=== PATIENT | female | born 1975 | race Caucasian/White ===

== ENCOUNTER 2017-10-18 14:22 | Emergency (ER) | payer MEDICARE, MEDICAID ==
[~2017-10-18] VITALS: Ht 170.2 cm; Wt 80.3 kg
[~2017-10-18 14:22] MED LIST: ALDACTONE50 MG PO; ATIVAN1 MG PO; CIPRO500 MG PO; CIPROFLOXIN HC2.5 M1 OTIC; GEODON 80 MG CA80 MG PO; GEODON20 MG PO; KLONOPIN1 MG PO; LAMICTAL100 MG PO; LINZESS72 MCG PO; OXYCODONE HCL 55 MG PO; OXYCONTIN10 M1 PO; PREVACID15 MG PO; PRISTIQ50 MG PO; STRATTERA25 MG PO; TRAZODONE HCL100 MG PO; WELLBUTRIN 100100 MG PO; [UNRECOGNIZED DRUG - OTHER]
[2017-10-18] MEDS ORDERED: CIPROFLOXIN HC2.5 M1 OTIC (14:43)
[2017-10-18 14:53] VITALS: BP 150/104
== END 2017-10-18 14:54 | disposition home or self-care (01) ==
LOC: M.ERS 14:22
DX: H60.92 Unspecified otitis externa, left ear (principal); F31.9 Bipolar disorder, unspecified; F41.9 Anxiety disorder, unspecified

== ENCOUNTER 2017-10-20 11:18 | Emergency (ER) | payer MEDICARE, MEDICAID ==
[~2017-10-20] VITALS: Ht 167.6 cm; Wt 80.3 kg
[2017-10-20 12:23] VITALS: BP 137/75
== END 2017-10-20 12:24 | disposition home or self-care (01) ==
LOC: M.ERS 11:18
DX: H92.03 Otalgia, bilateral (principal); F31.9 Bipolar disorder, unspecified; F41.9 Anxiety disorder, unspecified; Z90.49 Acquired absence of other specified parts of digestive tract; Z98.890 Other specified postprocedural states

== ENCOUNTER 2017-12-21 15:56 | Emergency (ER) | payer MEDICARE, MEDICAID ==
[~2017-12-21] VITALS: Ht 167.6 cm; Wt 77.1 kg
[2017-12-21 16:19] LABS: ABSOLUTE LYMPHOCYTES 1.7 thou/uL (0.8-5.3); ABSOLUTE MONOCYTES 0.4 thou/uL (0.0-1.2); ABSOLUTE NEUTROPHILS 5.4 thou/uL (1.6-8.1); BASOPHILS 0.5 %; EOSINOPHILS 0.2 %; HEMATOCRIT 41.4 % (37.0-47.0); HEMOGLOBIN 14.3 gm/dL (12.0-15.0); LYMPHOCYTES 22.7 %; MCH 33.4 pg (26.0-34.0); MCHC 34.4 g/dL (28.0-37.0); MCV 97.2 fL (80.0-100.0); MONOCYTES 5.5 %; MPV 8.1 fl. (7.2-11.1); NUCLEATED RBCS 0 /100WBC; PLATELET COUNT* 223 thou/uL (150-400); POLYS 71.1 %; RBC 4.26 mil/uL (4.20-5.00); WBC 7.6 thou/uL (4.0-11.0)
[2017-12-21 16:36] LABS: CALCIUM 9.2 mg/dL (8.5-10.1); CREATININE 0.7 mg/dL (0.6-1.3); POTASSIUM 3.8 mmol/L (3.5-5.1)
[2017-12-21 16:41] LABS: TOTAL BILIRUBIN 0.2 mg/dL (<0.1-1.0); TOTAL PROTEIN 7.7 g/dL (6.4-8.2)
[2017-12-21 16:58] LABS: URINE BILIRUBIN NEGATIVE (Negative); URINE BLOOD TRACE (Negative); URINE CLARITY CLEAR; URINE COLOR YELLOW; URINE GLUCOSE-RANDOM NEGATIVE (Negative); URINE KETONES NEGATIVE (Negative); URINE LEUKOCYTES-REFLEX NEGATIVE (Negative); URINE NITRITE-REFLEX NEGATIVE (Negative); URINE PROTEIN NEGATIVE (Negative); URINE SPECIFIC GRAVITY <= 1.005 (1.005-1.030); URINE UROBILINOGEN 0.2 E.U./dl (0.2-1.0)
[2017-12-21] MEDS ORDERED: RELISTOR12 MG/0.2 SUBQ (17:39)
[2017-12-21 18:26] VITALS: BP 126/88
== END 2017-12-21 18:27 | disposition home or self-care (01) ==
LOC: M.ERS 15:56
PROVIDERS: Nurse Practitioner Psychiatric/Mental Health
DX: K59.00 Constipation, unspecified (principal); F32.9 Major depressive disorder, single episode, unspecified; F41.9 Anxiety disorder, unspecified; Z90.49 Acquired absence of other specified parts of digestive tract

== ENCOUNTER 2017-12-23 15:33 | Emergency (ER) | payer MEDICARE, MEDICAID ==
[~2017-12-23] VITALS: Ht 167.6 cm; Wt 77.1 kg
[~2017-12-23 15:33] MED LIST changes: +RELISTOR12 MG/0.2 SUBQ
[2017-12-23 16:12] LABS: URINE BILIRUBIN NEGATIVE (Negative); URINE BLOOD NEGATIVE (Negative); URINE CLARITY CLEAR; URINE COLOR YELLOW; URINE GLUCOSE-RANDOM NEGATIVE (Negative); URINE KETONES NEGATIVE (Negative); URINE LEUKOCYTES-REFLEX NEGATIVE (Negative); URINE NITRITE-REFLEX NEGATIVE (Negative); URINE PROTEIN NEGATIVE (Negative); URINE UROBILINOGEN 0.2 E.U./dl (0.2-1.0)
[2017-12-23 16:13] LABS: ABSOLUTE LYMPHOCYTES 1.9 thou/uL (0.8-5.3); ABSOLUTE MONOCYTES 0.5 thou/uL (0.0-1.2); ABSOLUTE NEUTROPHILS 5.3 thou/uL (1.6-8.1); BASOPHILS 0.4 %; EOSINOPHILS 0.4 %; HEMATOCRIT 41.4 % (37.0-47.0); HEMOGLOBIN 14.1 gm/dL (12.0-15.0); LYMPHOCYTES 24.8 %; MCH 33.3 pg (26.0-34.0); MPV 8.1 fl. (7.2-11.1); NUCLEATED RBCS 0 /100WBC; PLATELET COUNT* 223 thou/uL (150-400); POLYS 68.4 %; RBC 4.23 mil/uL (4.20-5.00); RDW-CV 12.8 % (10.5-14.5); WBC 7.7 thou/uL (4.0-11.0)
[2017-12-23 16:25] LABS: CALCIUM 9.3 mg/dL (8.5-10.1); CREATININE 0.8 mg/dL (0.6-1.3); POTASSIUM 4.1 mmol/L (3.5-5.1)
[2017-12-23 16:30] LABS: ALBUMIN 3.9 g/dL (3.4-5.0); TOTAL BILIRUBIN 0.2 mg/dL (<0.1-1.0); TOTAL PROTEIN 7.6 g/dL (6.4-8.2)
[2017-12-23 19:37] VITALS: BP 122/81
== END 2017-12-23 19:37 | disposition home or self-care (01) ==
LOC: M.ERS 15:33
PROVIDERS: Personal Emergency Response Attendant
DX: G89.29 Other chronic pain (principal); R10.13 Epigastric pain; F31.9 Bipolar disorder, unspecified; F41.9 Anxiety disorder, unspecified; Z90.49 Acquired absence of other specified parts of digestive tract; Z91.041 Radiographic dye allergy status

== ENCOUNTER → 2018-02-24 | Outpatient (CLI) | payer MEDICARE, MEDICAID ==
[~2018-02-24] MED LIST changes: +AMITRIPTYLINE H10 M3 PO; +TRULANCE3 MG PO
== END ==
LOC: M.ULTRA 15:56
DX: R10.2 Pelvic and perineal pain (principal); R35.0 Frequency of micturition; M47.816 Spondylosis without myelopathy or radiculopathy, lumbar region

== ENCOUNTER 2018-03-09 21:38 | Inpatient (IN) | payer MEDICARE, MEDICAID ==
[~2018-03-09] VITALS: Ht 167.6 cm; Wt 84.4 kg
[~2018-03-09 21:38] MED LIST changes: -AMITRIPTYLINE H10 M3 PO; -TRULANCE3 MG PO
[2018-03-09 21:46] VITALS: BP 148/120
[2018-03-09 22:18] LABS: ABSOLUTE LYMPHOCYTES 1.4 thou/uL (0.8-5.3); ABSOLUTE MONOCYTES 0.8 thou/uL (0.0-1.2); ABSOLUTE NEUTROPHILS 9.2 thou/uL (1.6-8.1); BASOPHILS 0.3 %; EOSINOPHILS 0.2 %; HEMATOCRIT 41.1 % (37.0-47.0); HEMOGLOBIN 14.1 gm/dL (12.0-15.0); LYMPHOCYTES 12.6 %; MCH 33.5 pg (26.0-34.0); MCHC 34.2 g/dL (28.0-37.0); MCV 97.7 fL (80.0-100.0); MONOCYTES 6.6 %; MPV 7.7 fl. (7.2-11.1); NUCLEATED RBCS 0 /100WBC; PLATELET COUNT* 257 thou/uL (150-400); POLYS 80.3 %; RBC 4.21 mil/uL (4.20-5.00); RDW-CV 12.8 % (10.5-14.5); WBC 11.5 thou/uL (4.0-11.0)
[2018-03-09 22:27] LABS: CALCIUM 9.4 mg/dL (8.5-10.1); CREATININE 0.7 mg/dL (0.6-1.3); POTASSIUM 3.8 mmol/L (3.5-5.1)
[2018-03-09 22:31] LABS: ALBUMIN 3.8 g/dL (3.4-5.0); TOTAL BILIRUBIN 0.4 mg/dL (<0.1-1.0); TOTAL PROTEIN 7.4 g/dL (6.4-8.2)
[2018-03-10 00:05] VITALS: BP 122/78
[2018-03-10 00:13] LABS: URINE BILIRUBIN NEGATIVE (Negative); URINE BLOOD NEGATIVE (Negative); URINE CLARITY CLEAR; URINE COLOR STRAW; URINE GLUCOSE-RANDOM NEGATIVE (Negative); URINE KETONES 1+ (Negative); URINE LEUKOCYTES-REFLEX NEGATIVE (Negative); URINE NITRITE-REFLEX NEGATIVE (Negative); URINE PROTEIN NEGATIVE (Negative); URINE UROBILINOGEN 0.2 E.U./dl (0.2-1.0)
[2018-03-10 00:35] VITALS: BP 126/89
--- NOTE | 2018-03-10 02:20 | NUR ---
FAXED RECORDS FROM [facility] TAKEN TO FLOOR ET GIVEN TO TOBY AGUIRRE, RN
[2018-03-10 04:47] LABS: HEMATOCRIT 36.4 % (37.0-47.0); HEMOGLOBIN 12.5 gm/dL (12.0-15.0); MCH 33.8 pg (26.0-34.0); MCHC 34.3 g/dL (28.0-37.0); MCV 98.5 fL (80.0-100.0); MPV 8.1 fl. (7.2-11.1); RBC 3.7 mil/uL (4.20-5.00); RDW-CV 12.5 % (10.5-14.5); WBC 8.5 thou/uL (4.0-11.0)
--- NOTE | 2018-03-10 05:23 | NUR ---
ASSESSMENT COMPLETE. PT ADMITTED WITH INTRACTABLE ABD PAIN AND VOMITING AND HYPONATREMIA. PT IS ALERT AND ORIENTED X4. PT HAS DEVELOPMENTAL DELAY AND LEARNING DISABILITIES. PT IS FROM HOME ALONE, PARENTS ARE SUPPORT SYSTEM. PT ANXIOUS AND CRYING OUT FOR MOM. IV PAIN MEDICATION GIVEN WITH SOME RELIEF REPORTED. PT ABLE TO SLEEP SOME OF THE NIGHT. PT REPORTS NAUSEA, ONE EPISODE OF VOMITING NOTED SINCE ADMISSION TO FLOOR. PT IS ON ROOM AIR WITH [place] SATS. PT HAS IV FLUIDS INFUSING. PT IS UP STANDBY ASSIST. CALL LIGHT WITHIN REACH, BED ALARM. WILL CONTINUE PLAN OF CARE
[2018-03-10 05:31] LABS: CREATININE 0.6 mg/dL (0.6-1.3); POTASSIUM 4.2 mmol/L (3.5-5.1); TOTAL BILIRUBIN 0.3 mg/dL (<0.1-1.0); TOTAL PROTEIN 5.7 g/dL (6.4-8.2)
[2018-03-10 07:55] VITALS: BP 89/55
[2018-03-10 08:56] LABS: AMP/METHAMP Negative (Negative); BARBITURATES Negative (Negative); BENZODIAZEPINES Negative (Negative); COCAINE Negative (Negative); METHADONE Negative (Negative); OPIATES POSITIVE (Negative); PCP Negative (Negative); THC Negative (Negative)
--- NOTE | 2018-03-10 12:10 | NUR ---
INITIAL ASSESSMENT: Pt evaluated for d/c planning needs. Pt is mentally challenged and her mother is her guardian. Reviewed chart and spoke with nurse, pt and pt's mother at bedside. 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 Pt states that she drives herself to work. Pt uses no DME and has not had home health in the past. Pt plans on returning home on d/c from hospital. Will remain available to assist as needed.
[2018-03-10 16:42] VITALS: BP 137/74
--- NOTE | 2018-03-10 17:40 | NUR ---
PATIENT A&OX4, COGNITIVE DELAYS. ROOM AIR, IV RIGHT WRIST, FLUIDS INFUSSING. UP STAND BY, STEADY GAIT. PATIENT WAS TO BE DISCHARGED THIS EVENING AFTER A BM. AFTER BM, PATIENT STATES FEELING NAUSOUS AND LIKE SHE DID WHEN SHE CAME IN. SPOKE WITH PHYSICIAN, OKAY TO STAY. AFTER MYRLAX, MAG CITRATE, AND SUPPOSITORY PATIENT HAD MEDIUM BOWEL MOVEMENT. MOTHER, LEGAL GARDIAN, NOTIFIED OF PLANS. NO OTHER CONCERNS AT THIS TIME. APPROPRIATE AND COOPORATIVE WITH CARE.
[2018-03-10 20:30] VITALS: BP 122/65
[2018-03-11 03:56] LABS: ABSOLUTE EOSINOPHILS 0.1 thou/uL (0.0-0.7); ABSOLUTE LYMPHOCYTES 1.6 thou/uL (0.8-5.3); ABSOLUTE MONOCYTES 0.4 thou/uL (0.0-1.2); ABSOLUTE NEUTROPHILS 3.2 thou/uL (1.6-8.1); BASOPHILS 0.4 %; HEMATOCRIT 39.4 % (37.0-47.0); HEMOGLOBIN 13.2 gm/dL (12.0-15.0); LYMPHOCYTES 30.1 %; MCH 33.6 pg (26.0-34.0); MCHC 33.6 g/dL (28.0-37.0); MCV 99.8 fL (80.0-100.0); MONOCYTES 7.9 %; NUCLEATED RBCS 0 /100WBC; PLATELET COUNT* 210 thou/uL (150-400); POLYS 60.6 %; RBC 3.94 mil/uL (4.20-5.00); RDW-CV 12.8 % (10.5-14.5); WBC 5.2 thou/uL (4.0-11.0)
[2018-03-11 04:31] LABS: ALBUMIN 3.1 g/dL (3.4-5.0); CALCIUM 8.3 mg/dL (8.5-10.1); CREATININE 0.7 mg/dL (0.6-1.3); POTASSIUM 4.6 mmol/L (3.5-5.1); TOTAL BILIRUBIN 0.2 mg/dL (<0.1-1.0); TOTAL PROTEIN 5.9 g/dL (6.4-8.2)
[2018-03-11 07:45] VITALS: BP 116/79
[2018-03-11 09:41] VITALS: BP 122/65
--- NOTE | 2018-03-11 10:35 | NUR ---
PATIENT AND MOM GIVEN DISCHARGE INSTRUCTIONS AT THIS TIME. PATIENT'S MOM VERBALIZED UNDERSTANDING IN REGARDS TO FOLLOW UP APPOINTMENTS, MEDICATIONS, AND S/S TO CALL PHYSICIAN. PATIENT'S IV DISCONTINUED. PATIENT DISCHARGED TO HOME WITH ALL BELONGINGS. PATIENT ESCORTED OFF NURSING UNIT VIA WHEELCHAIR WITH NURSING STAFF.
== END 2018-03-11 10:38 | disposition home or self-care (01) | DRG 392 ==
LOC: M.ERS 21:38 → M.3W 23:21 → M.TBA-ER 23:21 → M.3W 03-10 00:11
PROVIDERS: Emergency Medicine; Internal Medicine; ADMIT Internal Medicine
DX: K58.1 Irritable bowel syndrome with constipation (principal); E87.1 Hypo-osmolality and hyponatremia; E86.0 Dehydration; F31.9 Bipolar disorder, unspecified; F41.9 Anxiety disorder, unspecified; K59.00 Constipation, unspecified; G89.29 Other chronic pain; Z90.49 Acquired absence of other specified parts of digestive tract; Z91.041 Radiographic dye allergy status; Z79.899 Other long term (current) drug therapy

== ENCOUNTER → 2018-05-10 | Outpatient (CLI) | payer MEDICARE, MEDICAID | LOC: M.ULTRA 14:00 | DX: F31.9 Bipolar disorder, unspecified (principal); R10.2 Pelvic and perineal pain; R10.9 Unspecified abdominal pain; Z98.891 History of uterine scar from previous surgery ==

== ENCOUNTER → 2018-05-31 | Outpatient (CLI) | payer MEDICARE, OTHER, MEDICAID | LOC: M.RAD 09:53 | DX: R13.12 Dysphagia, oropharyngeal phase (principal); K14.6 Glossodynia; R05 Cough; Z68.28 Body mass index [BMI] 28.0-28.9, adult ==

== ENCOUNTER → 2018-06-18 | Outpatient (CLI) | payer MEDICARE, OTHER, MEDICAID ==
[~2018-06-18] MED LIST changes: +AMITRIPTYLINE H10 M3 PO; +TRULANCE3 MG PO
== END ==
LOC: M.RAD 09:51
DX: K21.0 Gastro-esophageal reflux disease with esophagitis (principal); R05 Cough

== ENCOUNTER → 2018-06-21 | Outpatient (CLI) | payer MEDICARE, MEDICAID | LOC: M.RAD 13:51 | DX: M47.897 Other spondylosis, lumbosacral region (principal); M54.42 Lumbago with sciatica, left side; M54.41 Lumbago with sciatica, right side; G89.29 Other chronic pain ==

== ENCOUNTER → 2018-06-23 | Outpatient (CLI) | payer MEDICARE, OTHER, MEDICAID | LOC: M.NUC 06-15 13:26 | DX: K31.84 Gastroparesis (principal); K21.0 Gastro-esophageal reflux disease with esophagitis ==

== ENCOUNTER 2018-06-25 14:15 | Emergency (ER) | payer MEDICARE, MEDICAID ==
[~2018-06-25] VITALS: Ht 167.6 cm; Wt 83.9 kg
[~2018-06-25 14:15] MED LIST changes: -AMITRIPTYLINE H10 M3 PO; -TRULANCE3 MG PO
[2018-06-25] MEDS ORDERED: TRAZODONE HCL100 MG PO (14:19)
[2018-06-25] MEDS ORDERED: TRULANCE3 MG PO (14:19)
[2018-06-25] MEDS ORDERED: AMITRIPTYLINE H10 M3 PO (14:20)
[2018-06-25 15:06] LABS: ABSOLUTE LYMPHOCYTES 1.4 thou/uL (0.8-5.3); ABSOLUTE MONOCYTES 0.3 thou/uL (0.0-1.2); ABSOLUTE NEUTROPHILS 3.5 thou/uL (1.6-8.1); BASOPHILS 0.4 %; EOSINOPHILS 0.8 %; HEMATOCRIT 40.6 % (37.0-47.0); HEMOGLOBIN 13.8 gm/dL (12.0-15.0); LYMPHOCYTES 26.1 %; MCH 32.8 pg (26.0-34.0); MCV 96.7 fL (80.0-100.0); MONOCYTES 5.7 %; MPV 7.9 fl. (7.2-11.1); NUCLEATED RBCS 0 /100WBC; PLATELET COUNT* 244 thou/uL (150-400); RDW-CV 12.1 % (10.5-14.5); WBC 5.2 thou/uL (4.0-11.0)
[2018-06-25 15:14] LABS: CREATININE 0.7 mg/dL (0.6-1.3); POTASSIUM 3.7 mmol/L (3.5-5.1)
[2018-06-25 15:19] LABS: ALBUMIN 3.5 g/dL (3.4-5.0); TOTAL BILIRUBIN 0.2 mg/dL (<0.1-1.0); TOTAL PROTEIN 7.1 g/dL (6.4-8.2)
[2018-06-25 16:14] LABS: URINE BILIRUBIN NEGATIVE (Negative); URINE BLOOD NEGATIVE (Negative); URINE CLARITY CLEAR; URINE COLOR YELLOW; URINE GLUCOSE-RANDOM NEGATIVE (Negative); URINE KETONES NEGATIVE (Negative); URINE LEUKOCYTES NEGATIVE (Negative); URINE NITRITE NEGATIVE (Negative); URINE PROTEIN NEGATIVE (Negative); URINE SPECIFIC GRAVITY <= 1.005 (1.005-1.030); URINE UROBILINOGEN 0.2 E.U./dl (0.2-1.0)
[2018-06-25 16:39] LABS: INFLUENZA A ANTIGEN None Detected (None Detect); INFLUENZA B ANTIGEN None Detected (None Detect)
[2018-06-25 17:08] VITALS: BP 156/104
== END 2018-06-25 17:09 | disposition home or self-care (01) ==
LOC: M.ERS 14:15
PROVIDERS: Nurse Practitioner Family
DX: R51 Headache (principal); K31.84 Gastroparesis; T43.015A Adverse effect of tricyclic antidepressants, initial encounter; R41.82 Altered mental status, unspecified; F31.9 Bipolar disorder, unspecified; F41.9 Anxiety disorder, unspecified; Z90.49 Acquired absence of other specified parts of digestive tract; Z91.041 Radiographic dye allergy status; Y92.89 Other specified places as the place of occurrence of the external cause

== ENCOUNTER → 2018-06-28 | Outpatient (CLI) | payer MEDICARE, MEDICAID ==
[~2018-06-28] MED LIST changes: +AMITRIPTYLINE H10 M3 PO; +TRULANCE3 MG PO
== END ==
LOC: M.MRI 06-25 08:30
DX: M47.897 Other spondylosis, lumbosacral region (principal); M54.42 Lumbago with sciatica, left side; M54.41 Lumbago with sciatica, right side; G89.29 Other chronic pain; R35.0 Frequency of micturition

== ENCOUNTER 2018-09-07 10:40 | Emergency (ER) | payer MEDICARE, MEDICAID ==
[~2018-09-07] VITALS: Ht 167.6 cm; Wt 90.7 kg
[2018-09-07 11:21] LABS: ABSOLUTE MONOCYTES 0.6 thou/uL (0.0-1.2); ABSOLUTE NEUTROPHILS 7.9 thou/uL (1.6-8.1); BASOPHILS 0.2 %; EOSINOPHILS 0.1 %; HEMOGLOBIN 14.9 gm/dL (12.0-15.0); LYMPHOCYTES 18.8 %; MCH 33.1 pg (26.0-34.0); MCHC 34.6 g/dL (28.0-37.0); MCV 95.8 fL (80.0-100.0); MONOCYTES 5.4 %; MPV 7.2 fl. (7.2-11.1); NUCLEATED RBCS 0 /100WBC; PLATELET COUNT* 311 thou/uL (150-400); POLYS 75.5 %; RBC 4.49 mil/uL (4.20-5.00); RDW-CV 12.9 % (10.5-14.5); WBC 10.5 thou/uL (4.0-11.0)
[2018-09-07 11:27] LABS: URINE BILIRUBIN NEGATIVE (Negative); URINE BLOOD TRACE (Negative); URINE CLARITY CLEAR; URINE COLOR YELLOW; URINE GLUCOSE-RANDOM NEGATIVE (Negative); URINE KETONES NEGATIVE (Negative); URINE LEUKOCYTES-REFLEX NEGATIVE (Negative); URINE NITRITE-REFLEX NEGATIVE (Negative); URINE PROTEIN NEGATIVE (Negative); URINE SPECIFIC GRAVITY <= 1.005 (1.005-1.030); URINE UROBILINOGEN 0.2 E.U./dl (0.2-1.0)
[2018-09-07 11:29] LABS: CALCIUM 9.3 mg/dL (8.5-10.1); CREATININE 0.7 mg/dL (0.6-1.3); POTASSIUM 3.5 mmol/L (3.5-5.1)
[2018-09-07 11:34] LABS: AMP/METHAMP Negative (Negative); BARBITURATES Negative (Negative); BENZODIAZEPINES Negative (Negative); COCAINE Negative (Negative); METHADONE Negative (Negative); OPIATES Negative (Negative); PCP Negative (Negative); THC Negative (Negative)
[2018-09-07 11:34] LABS: ALBUMIN 3.3 g/dL (3.4-5.0); TOTAL BILIRUBIN 0.2 mg/dL (<0.1-1.0); TOTAL PROTEIN 7.5 g/dL (6.4-8.2)
[2018-09-07 11:37] LABS: ALCOHOL < 10 mg/dL (<10); SALICYLATE < 2.8 mg/dL (2.8-20.0)
[2018-09-07 11:39] LABS: ACETAMINOPHEN < 2 ug/mL (10-30)
[2018-09-07 12:16] VITALS: BP 157/109
== END 2018-09-07 12:16 | disposition home or self-care (01) ==
LOC: M.ERS 10:40
PROVIDERS: Emergency Medicine
DX: F32.9 Major depressive disorder, single episode, unspecified (principal); F41.9 Anxiety disorder, unspecified; Z90.49 Acquired absence of other specified parts of digestive tract; Z91.041 Radiographic dye allergy status; Z79.899 Other long term (current) drug therapy

== ENCOUNTER 2018-10-09 14:05 | Emergency (ER) | payer MEDICARE, MEDICAID ==
[~2018-10-09] VITALS: Ht 167.6 cm; Wt 90.7 kg
[2018-10-09] MEDS ORDERED: [UNRECOGNIZED DRUG - OTHER] (14:20)
[2018-10-09] MEDS ORDERED: [UNRECOGNIZED DRUG - OTHER] (14:20)
[2018-10-09] MEDS ORDERED: MOTION RELIEF25 MG PO (14:28)
[2018-10-09] MEDS ORDERED: AUGMENTIN 875-1 EACH PO (14:28)
[2018-10-09 14:56] VITALS: BP 124/78
== END 2018-10-09 14:56 | disposition home or self-care (01) ==
LOC: M.ERS 14:05
DX: H66.92 Otitis media, unspecified, left ear (principal); F31.9 Bipolar disorder, unspecified; F41.9 Anxiety disorder, unspecified; Z90.49 Acquired absence of other specified parts of digestive tract; Z91.041 Radiographic dye allergy status

== ENCOUNTER 2019-09-12 12:49 | Emergency (ER) | payer MEDICARE, MEDICAID ==
[~2019-09-12] VITALS: Ht 167.6 cm; Wt 97.5 kg
[~2019-09-12 12:49] MED LIST changes: +ALDACTONE100 MG PO; +AUGMENTIN 875-1 EACH PO; +CEFADROXIL 500500 M1 PO; +DEXILANT60 MG PO; +FOLIC ACID1 MG PO; +INDERAL LA 80 M80 MG PO; +INVEGA 3 MG3 MG PO; +MOTION RELIEF25 MG PO; +PROSCAR 5MG TABL5 MG PO; +REGLAN 5 MG TAB5 MG PO; +STRATTERA60 MG PO; +[UNRECOGNIZED DRUG - OTHER]; +[UNRECOGNIZED DRUG - OTHER]
[2019-09-12 13:36] LABS: ABSOLUTE LYMPHOCYTES 1.5 thou/uL (0.8-5.3); ABSOLUTE MONOCYTES 0.3 thou/uL (0.0-1.2); ABSOLUTE NEUTROPHILS 2.8 thou/uL (1.6-8.1); BASOPHILS 0.4 %; EOSINOPHILS 0.9 %; HEMATOCRIT 39.7 % (37.0-47.0); HEMOGLOBIN 14.2 gm/dL (12.0-15.0); LYMPHOCYTES 32.1 %; MCH 31.7 pg (26.0-34.0); MCHC 35.7 g/dL (28.0-37.0); MONOCYTES 7.2 %; MPV 8.1 fl. (7.2-11.1); NUCLEATED RBCS 0 /100WBC; PLATELET COUNT* 253 thou/uL (150-400); POLYS 59.4 %; RBC 4.46 mil/uL (4.20-5.00); RDW-CV 13.4 % (10.5-14.5); WBC 4.8 thou/uL (4.0-11.0)
[2019-09-12 13:53] LABS: CALCIUM 8.9 mg/dL (8.5-10.1); CREATININE 0.9 mg/dL (0.6-1.3); POTASSIUM 3.6 mmol/L (3.5-5.1)
[2019-09-12 13:54] LABS: SALICYLATE < 2.8 mg/dL (2.8-20.0)
[2019-09-12 13:55] LABS: ACETAMINOPHEN < 2 ug/mL (10-30); ALCOHOL < 10 mg/dL (<10)
[2019-09-12 13:58] LABS: ALBUMIN 3.4 g/dL (3.4-5.0); TOTAL BILIRUBIN 0.3 mg/dL (<0.1-1.0); TOTAL PROTEIN 6.9 g/dL (6.4-8.2)
[2019-09-12 14:00] LABS: URINE BILIRUBIN NEGATIVE (Negative); URINE BLOOD NEGATIVE (Negative); URINE CLARITY CLEAR; URINE COLOR YELLOW; URINE GLUCOSE-RANDOM NEGATIVE (Negative); URINE KETONES NEGATIVE (Negative); URINE LEUKOCYTES-REFLEX NEGATIVE (Negative); URINE NITRITE-REFLEX NEGATIVE (Negative); URINE PROTEIN NEGATIVE (Negative); URINE SPECIFIC GRAVITY <= 1.005 (1.005-1.030); URINE UROBILINOGEN 0.2 E.U./dl (0.2-1.0)
[2019-09-12 14:08] LABS: AMP/METHAMP Negative (Negative); BARBITURATES Negative (Negative); BENZODIAZEPINES Negative (Negative); COCAINE Negative (Negative); METHADONE Negative (Negative); OPIATES Negative (Negative); PCP Negative (Negative); THC Negative (Negative)
[2019-09-12 19:14] VITALS: BP 122/62
== END 2019-09-12 19:15 | disposition home or self-care (01) ==
LOC: M.ERS 12:49
PROVIDERS: Emergency Medicine Emergency Medical Services
DX: F32.9 Major depressive disorder, single episode, unspecified (principal); F41.9 Anxiety disorder, unspecified; Z90.49 Acquired absence of other specified parts of digestive tract; Z91.041 Radiographic dye allergy status